=== PATIENT | female | born 1975 | race Caucasian/White ===

== ENCOUNTER 2018-07-02 10:41 | Emergency (ER) | payer MEDICAID ==
--- NOTE | 2018-07-02 10:52 | EDPHY ---
H & P Stated Complaint: CP, SOB Time Seen by Provider: 07/02/18 10:52 - Personal History Current Tetanus/Diphtheria Vaccine: Yes Current Tetanus Diphtheria and Acellular Pertussis (TDAP): Yes - Medical/Surgical History Hx Asthma: Yes Hx Chronic Respiratory Disease: No Hx Diabetes: No Hx Cardiac Disease: No Hx Renal Disease: No Hx Cirrhosis: No Hx Alcoholism: No Hx HIV/AIDS: No Hx Splenectomy or Spleen Trauma: No Other PMH: med hx-exercise induced asthma. surg-none - Social History Smoking Status: Never smoked Constitutional: Initial Vital Signs Temperature (C) 37.1 C 07/02/18 10:46 Heart Rate 91 07/02/18 10:46 Respiratory Rate 16 07/02/18 10:46 Blood Pressure 127/92 H 07/02/18 10:46 O2 Sat (%) 96 07/02/18 10:46 O2 Delivery Mode Room Air Allergies/Adverse Reactions: No Known Allergies Allergy (Verified 07/02/18 10:46) Home Medications: Medication Instructions Recorded NK [No Known Home Meds] 10/24/13 Medical Decision Making - Diagnostics Imaging Results: Imaging Impressions Chest X-Ray 07/02/18 11:09 Impression: Mild airways disease. Otherwise nothing acute. Imaging: Discussed imaging studies w/ fisher scallop Radiologist, I viewed and interpreted images myself ED Course/Re-evaluation: CHIEF COMPLAINT: Chest pain and shortness of breath HISTORY OF PRESENT ILLNESS: The patient is a 42 y/o female with a history of exercise-induced asthma and hypercholesteremia complaining of shortness of breath and chest pain onset last night. Last week the patient noticed that her "heart and chest hurt" she and couldn't take a deep breath. When take deep breath she feels a "flutter" in her chest. These symptoms eventually resolved. Last night she developed the symptoms again and felt more short of breath while sitting or exerting herself. She was unsure if these symptoms were due to being stressed. Due to these symptoms she decided to see Dr. Menjivar this morning and had an abnormal EKG during that visit. Due to the abnormal EKG she was advised to present to the emergency department. She does report that in early June she flew to and from [place]. She denies history of hypertension and diabetes. No headache, fever, abdominal pain, urinary or bowel complaints, numbness, paresthesias. REVIEW OF SYSTEMS: A comprehensive 10 system review of systems is otherwise negative aside from elements mentioned in the history of present illness and medical decision making. PHYSICAL EXAM: HR, BP, O2 Sat, RR. Temp noted General Appearance: Obese, alert, well hydrated, appropriate, and non-toxic appearing. Head: Atraumatic without scalp tenderness or obvious injury Eyes: Pupils equal, round, reactive to light and accommodation, EOMI, no trauma , no injection. Ears: Clear bilaterally, no perforation, normal landmarks Nose: Atraumatic, no rhinorrhea, clear. Throat: There is no erythema or exudates, no lesions, normal tonsils, mucus membranes moist. Neck: Supple, 2+ carotid upstroke, nontender, no lymphadenopathy. Respiratory: No retractions, no distress, no wheezes, and no accessory muscle use. Lungs are clear to auscultation bilaterally. Cardiovascular: Regular rate and rhythm, no murmurs, rubs, or gallops. Bilateral carotid, radial, dorsalis pedis, and posterior tibial pulses intact. Good capillary refill all extremities. Gastrointestinal: Abdomen is soft, nontender, non-distended, no masses, no rebound, no guarding, no peritoneal signs. Musculoskeletal: Normal active ROM of all extremities, atraumatic. Neurological: Alert, appropriate, and interactive. The patient has normal DTRs and non-focal cranial nerves, motor, sensory, and cerebellar exam. Skin: No rashes, good turgor, no nodules on palpation. Past medical history: Exercise-induced asthma, hypercholesteremia Past surgical history: Denies Family history: Father had DC at 60 y/o Social history: Friend at bedside, lives in [place] DIAGNOSTICS/PROCEDURES/CRITICAL CARE TIME: EKG: The 12 lead EKG was interpreted by myself as sinus arrythmia with a rate of 67, biphasic T-wave consistent with Wellan's criteria. See hard copy and/or "tracemaster" electronic copy for interpretation. Patient's EKG from Dr. Menjivar is slightly more abnormal. Chest x-ray: No acute findings. Echocardiogram: Normal Chest CTA: No acute findings. Critical care time spent by me, Dr. Rob, exclusively with this patient was 45 minutes, exclusive of PA time and exclusive of procedures. The organ system at risk was cardiovascular and I gave Aspirin, had an echo performed, and admitted the patient to prevent worsening of the patients condition. DIFFERENTIAL DIAGNOSIS: The differential diagnosis for the patient's chest pain included but was not limited to myocardial ischemia, pulmonary embolus, chest wall pain, pleural inflammation, and pulmonary infectious causes. MEDICAL DECISION MAKING: The patient is a 42 y/o female with a history of exercise-induced asthma and hypercholesteremia presenting with shortness of breath and chest pain onset last night. She saw Dr. Menjivar today and had an abnormal EKG, so she was advised to present to the emergency department. She has a normal physical exam. Labs, EKG, and chest x-ray ordered; 325mg PO Aspirin administered. 1058: I reviewed patient's EKG which reveals biphasic T-wave consistent with Wellan's criteria. 1103: I discussed the EKG findings with the patient. 1152: I consulted with the PA from [facility] regarding this patient. will consult on this patient; echocardiogram ordered. 1315: I consulted with Dr. Mccoy, arbitrator, regarding this patient. The patient had a normal echo; chest CTA ordered. 1330: Reassessed the patient and discussed my cardiology consultation. Patient is comfortable with having a chest CTA. 1450: I spoke with Dr. Joseph, radiologist, who reports that the chest CTA has no acute findings. 1505: Reassessed patient and discussed imaging findings. I have advised her to follow up with a arbitrator and her PCP. Return precautions provided; patient is comfortable with this plan. - Data Points Laboratory Results: Laboratory Results 07/02/18 11:00 07/02/18 11:00 07/02/18 07/02/18 07/02/18 11:02 11:00 11:00 WBC RBC Hgb Hct MCV MCH MCHC RDW Plt Count MPV Neut % (Auto) Lymph % (Auto) [place] % (Auto) Eos % (Auto) Baso % (Auto) Nucleat RBC Rel Count Absolute Neuts (auto) Absolute Lymphs (auto) Absolute Monos (auto) Absolute Eos (auto) Absolute Basos (auto) Absolute Nucleated RBC Immature Gran % Immature Gran # PT INR APTT D-Dimer Sodium 138 mEq/L mEq/L (135-145) Potassium 3.9 mEq/L mEq/L (3.5-5.2) Chloride 109 mEq/L mEq/L (97-110) Carbon Dioxide 21 mEq/l L mEq/l (22-31) Anion Gap 8 mEq/L mEq/L (6-14) BUN 14 mg/dL mg/dL (7-23) Creatinine 0.7 mg/dL mg/dL (0.6-1.0) Estimated GFR > 60 Glucose 88 mg/dL mg/dL (70-100) Calcium 9.1 mg/dL mg/dL (8.5-10.4) POC Troponin I 0.04 ng/mL ng/mL (0.00-0.08) NT-Pro-B Natriuret Pep 480 pg/mL H pg/mL (0-125) Beta HCG, Qual NEGATIVE 07/02/18 07/02/18 11:00 11:00 WBC 10.64 10^3/uL H 10^3/uL (3.80-9.50) RBC 4.76 10^6/uL 10^6/uL (4.18-5.33) Hgb 14.3 g/dL g/dL (12.6-16.3) Hct 44.7 % % (38.0-47.0) MCV 93.9 fL fL (81.5-99.8) MCH 30.0 pg pg (27.9-34.1) MCHC 32.0 g/dL L g/dL (32.4-36.7) RDW 13.4 % % (11.5-15.2) Plt Count 309 10^3/uL 10^3/uL (150-400) MPV 9.5 fL fL (8.7-11.7) Neut % (Auto) 71.2 % % (39.3-74.2) Lymph % (Auto) 16.4 % % (15.0-45.0) [place] % (Auto) 8.1 % % (4.5-13.0) Eos % (Auto) 3.2 % % (0.6-7.6) Baso % (Auto) 0.5 % % (0.3-1.7) Nucleat RBC Rel Count 0.0 % % (0.0-0.2) Absolute Neuts (auto) 7.58 10^3/uL H 10^3/uL (1.70-6.50) Absolute Lymphs (auto) 1.75 10^3/uL 10^3/uL (1.00-3.00) Absolute Monos (auto) 0.86 10^3/uL H 10^3/uL (0.30-0.80) Absolute Eos (auto) 0.34 10^3/uL 10^3/uL (0.03-0.40) Absolute Basos (auto) 0.05 10^3/uL 10^3/uL (0.02-0.10) Absolute Nucleated RBC 0.00 10^3/uL 10^3/uL (0-0.01) Immature Gran % 0.6 % % (0.0-1.1) Immature Gran # 0.06 10^3/uL 10^3/uL (0.00-0.10) PT 12.4 SEC SEC (12.0-15.0) INR 0.90 (0.83-1.16) APTT 27.1 SEC SEC (23.0-38.0) D-Dimer < 0.27 ug/mLFEU ug/mLFEU (0.00-0.50) Sodium Potassium Chloride Carbon Dioxide Anion Gap BUN Creatinine Estimated GFR Glucose Calcium POC Troponin I NT-Pro-B Natriuret Pep Beta HCG, Qual Medications Given: Discontinued Medications Aspirin (Aspirin) 324 mg PO EDNOW ONE Stop: 07/02/18 11:10 Last Admin: 07/02/18 11:12 Dose: 324 mg Point of Care Test Results: Chemistry 07/02/18 11:02 POC Troponin I 0.04 ng/mL ng/mL (0.00-0.08) Departure - Departure Disposition: Home, Routine, Self-Care Clinical Impression: Shortness of breath Chest pain Qualifiers: Chest pain type: other chest pain Qualified Code(s): R07.89 - Other chest pain Condition: Good Instructions: Chest Pain (ED), Shortness of Breath (ED) Additional Instructions: 1. Follow-up with your primary doctor within 72 hours. 2. Return to the Emergency Department for fever, chest pain, shortness of breath , increasing pain or other worsening of condition. 3. Follow up with a arbitrator for further testing, as soon as possible, within one week. 4. As we discussed, it is impossible to fully rule out heart disease as the cause of your chest pain in the emergency department. We would be happy to reevaluate you and observe you in the hospital at any time. Referrals: Carlos Menjivar MD [Primary Care Provider] - As per Instructions Chantal Mccoy MD [Medical Doctor] - As per Instructions Report Scribed for: Boy Rob Report Scribed by: Estefania Ag Date of Report: 07/02/18 Time of Report: 11:00
[2018-07-02] MEDS ORDERED: ASPIRIN 81 MG CHEWABLE TAB ONE (11:09)
[2018-07-02] MEDS ORDERED: ASPIRIN 81 MG CHEWABLE TAB PO ONE (11:09)
[2018-07-02 11:26] LABS: PLATELET COUNT 309 10^3/uL (150-400)
[2018-07-02 11:30] LABS: PROTIME(PATIENT) 12.4 SEC (12.0-15.0)
--- NOTE | 2018-07-02 12:00 | CPEKG ---
Test Reason : OPEN Blood Pressure : / mmHG Vent. Rate : 067 BPM Atrial Rate : 066 BPM P-R Int : 124 ms QRS Dur : 089 ms QT Int : 428 ms P-R-T Axes : 011 062 014 degrees QTc Int : 452 ms Sinus arrhythmia Confirmed by Boy Rob ([id number]) on 07/02/2018 12:00:09 PM Referred By: Boy Rob Confirmed By:Boy Rob
--- NOTE | 2018-07-02 13:20 | ECHO ---
[email or web address] [address] [address] Main: [phone] Fax: Transthoracic Echocardiogram Name: LUISA RUANO MR#: [id number] Study Date: 07/02/2018 Study Time: 12:09 PM Date of : 1975 Age: 42 year(s) Height: 170.2 cm (67 in.) Weight: 108.86 kg (240 lb.) BSA: 2.18 m2 Gender: Female Examination: Echo Indication: Chest Pain Image Quality: Technically Difficult Contrast: Requested by: Boy Rob BP: 137 mmHg/89 mmHg Heart Rate: Rhythm: Indication: Chest Pain Procedure Staff Roller Inspector And Mender: Sheila Nettles RDCS Reading Physician: Chantal Mccoy MD Requesting Provider: Conclusions: Normal size left ventricle. No LV hypertrophy. Normal global systolic LV function. The ejection fraction is estimated to be 60-65 %. No regional wall motion abnormality. Normal diastolic LV function. Normal size right ventricle. Normal RV function. Mild mitral valve regurgitation is present. Mild tricuspid regurgitation is present. No pericardial effusion. There is no previous echocardiogram for comparison. Measurements: Chambers Valvular Assessment AV/MV Valvular Assessment TV/PV Normal Normal Normal Name Value Range Name Value Range Name Value Range Ao Bre (MM): 3.3 cm (2.2 cm-3.7 AV Vmax: 1.50 m/s (1 m/s-1.7 cm) m/s) IVSd (2D): 0.6 cm (0.6 cm-1.1 AV maxP mmHg ( - ) cm) AV meanP mmHg ( - ) LVDd (2D): 5.6 cm (3.9 cm-5.3 MV E Vmax: 0.82 m/s ( - ) cm) MV A Vmax: 0.47 m/s ( - ) LVPWd (2D): 1.0 cm ( - ) MV E/A: 1.74 ( - ) EF Range: 60-65 % Continued Measurements: Chambers Valvular Assessment AV/MV Patient: LUISA RUANO Study Date: 07/02/2018 Page 1 of 2 12:09 PM Name Value Name Value LADs: 3.9 cm MV E/E' Septal: 10.60 LADs Lon.0 cm MV E/E' Lateral: 6.40 LA Area: 22.8 cm2 LA Volume: 62 ml LA Volume Index: 28.4 ml/m2 Additional Vessels Name Value Ao Ascendin.3 cm Findings: Left Ventricle: Normal size left ventricle. No LV hypertrophy. Normal global systolic LV function. The ejection fraction is estimated to be 60-65 %. No regional wall motion abnormality. Normal diastolic LV function. Right Ventricle: Normal size right ventricle. Normal RV function. Left Atrium: The left atrium is normal in size. Right Atrium: The right atrium is normal in size. Mitral Valve: The mitral valve is normal in appearance and function. Mild mitral valve regurgitation is present. Aortic Valve: The aortic valve is normal in appearance and function. There is no aortic valve regurgitation. Tricuspid Valve: The tricuspid valve is normal in appearance and function. Mild tricuspid regurgitation is present. Pulmonic Valve: The pulmonic valve is normal in appearance and function. Aorta: The aorta is normal. Pericardium: No pericardial effusion. There is pericardial fat. (No Signature Object) Patient: LUISA RUANO Study Date: 07/02/2018 Page 2 of 2 12:09 PM [id number]
[2018-07-02] MEDS ORDERED: IOHEXOL 350mgI/ML (OMNIPAQUE) 150 ML BTL IV ONE (13:32)
[2018-07-02 15:05] VITALS: BP 119/72
== END 2018-07-02 15:17 | disposition home or self-care (01) ==
DX: R07.89 Other chest pain (principal); R06.02 Shortness of breath; J45.909 Unspecified asthma, uncomplicated; E78.5 Hyperlipidemia, unspecified
CPT/HCPCS: 84484-ER; Q9967